=== PATIENT | male | born 1970 | race Caucasian/White ===

== ENCOUNTER → 2017-03-03 | Day surgery (SDC) | payer OTHER ==
[~2017-03-03] MED LIST: IV RINGERS,LACTATED 1000ML 1,000 ML IV SCH; LIDOCAINE 2% PF Vial for OR 5 ML VIAL. ONE; PROPOFOL 40 ML IV ONE
[2017-03-03 17:27] VITALS: BP 126/73
== END | disposition home or self-care (01) ==
LOC: SURG 15:36
PROVIDERS: ATTEND Internal Medicine Gastroenterology
DX: K57.32 Diverticulitis of large intestine without perforation or abscess without bleeding (principal); K64.0 First degree hemorrhoids; K57.30 Diverticulosis of large intestine without perforation or abscess without bleeding; Z87.39 Personal history of other diseases of the musculoskeletal system and connective tissue
CPT/HCPCS: 45378; J2704; J2001